=== PATIENT | female | born 2000 | race Hispanic/Latino ===

== ENCOUNTER 2021-06-13 12:58 | Emergency (ER) | payer SELFPAY ==
--- OUTSIDE RECORDS SUMMARY | 2021-06-13 13:01 | XMS REPORT | Continuity of Care Document ---
:2000 Author Organization [facility] t Address [address] [place] [address] [address]. [address] [place] [address] Care Team Providers Name Role Phone Yogesh ARMSTRONG Attending Clinician Problems This patient has no known problems. Allergies, Adverse Reactions, Alerts This patient has no known allergies or adverse reactions. Medications This patient has no known medications. Procedures This patient has no known procedures. Encounters Start End Encounter Admission Attending Care Care Encounter Source Date/Time Date/Time Type Type Clinicians Facility Department ID 2021-03-05 2021-03-05 Emergency Yogesh [facility] [id number] 19:20:00 21:17:00 Malissa Pittman [id number] [place] [id number] [place] [phone] [id number] Results This patient has no known results.
[2021-06-13 13:15] LABS: Urine Blood Trace-intact (Negative); Urine Glucose Negative (Negative); Urine Protein Negative (Negative)
[2021-06-13] MEDS ORDERED: AZITHROMYCIN 250 MG TAB ONE (14:09)
[2021-06-13] MEDS ORDERED: LIDOCAINE 1% MPF 5 ML VIAL ONE (14:09)
[2021-06-13] MEDS ORDERED: CEFTRIAXONE 250 MG/VIAL ONE (14:10)
--- NOTE | 2021-06-13 14:25 | EDPHYS ---
Physician Documentation [facility] Name: Eyad Delarosa Age: 20 yrs Sex: Female : 2000 Arrival Date: 06/13/2021 Time: 13:00 Bed 19 Private MD: ED Physician Aziza Walsh HPI: 06/13 13:20 This 20 yrs old Female presents to ER via Ambulatory with complaints of jmm Urinary Problem. 13:20 The patient presents with urinary symptoms. Onset: The symptoms/episode began/occurred jmm gradually. Modifying factors: The symptoms are alleviated by nothing, the symptoms are aggravated by nothing. 20-year-old female no chronic medical additions presents emerged part with complaints of dysuria beginning approximately 1 week ago. Patient does admit to unprotected sexual intercourse. States having mild discharge, denies pelvic pain. Denies vomiting or diarrhea.. 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 - Social history:: Smoking status: Reported history of juuling and/or vaping. ROS: 13:20 Constitutional: Negative for fever, chills, and weight loss, Cardiovascular: Negative jmm for chest pain, palpitations, and edema, Respiratory: Negative for shortness of breath, cough, wheezing, and pleuritic chest pain. 13:20 : Positive for urinary symptoms. 13:20 All other systems are negative. Exam: 13:20 Constitutional: This is a well developed, well nourished patient who is awake, alert, jmm and in no acute distress. Head/Face: atraumatic. Eyes: EOMI, no conjunctival erythema appreciated ENT: Moist Mucus Membranes Neck: Trachea midline, Supple Chest/axilla: Normal chest wall appearance and motion. Cardiovascular: Regular rate and rhythm. No edema appreciated Respiratory: Normal respirations, no respiratory distress appreciated Abdomen/GI: Non distended, soft Back: Normal ROM Skin: General appearance color normal MS/ Extremity: Moves all extremities, no obvious deformities appreciated, no edema noted to the lower extremities Neuro: Awake and alert, normal gait Psych: Behavior is normal, Mood is normal, Patient is cooperative and pleasant Vital Signs: 13:06 BP 117 / 85; Pulse 77; Resp 18 S; Temp 98.1; Pulse Ox 100% on R/A; Weight 81.65 kg (R); ca1 Height 5 ft. 6 in. (167.64 cm) (R); Pain 7/10; 13:06 Body Mass Index 29.05 (81.65 kg, 167.64 cm) ca1 MDM: 13:32 Patient medically screened. [facility] 14:23 Data reviewed: vital signs, nurses notes. Counseling: I had a detailed discussion with kim the patient and/or guardian regarding: the historical points, exam findings, and any diagnostic results supporting the discharge/admit diagnosis, lab results, the need for outpatient follow up, to return to the emergency department if symptoms worsen or persist or if there are any questions or concerns that arise at home. ED course: Patient is alert and nontoxic in appearance in the ED. I do not suspect PID. Due to symptomatology, patient most likely has a urinary tract infection. Urine sent for culture as well as GC. Patient will be treated for STI prophylactically. Patient is otherwise given strict return precautions. Patient understood and agrees with plan of care.. 06/13 13:15 Order name: Urine Culture [facility] 06/13 13:15 Order name: Urine Dipstick-Ancillary; Complete Time: 13:32 EDMS 06/13 13:17 Order name: Urine --Ancillary (enter results) [place] 06/13 13:17 Order name: Urine --Ancillary EDGA Administered Medications: 14:14 Drug: Rocephin (cefTRIAXone) 250 mg Route: IM; Site: right gluteus; ll1 14:37 Follow up: Response: No adverse reaction ll1 14:14 Drug: AZITHromycin 1 grams Route: PO; ll1 14:37 Follow up: Response: No adverse reaction ll1 Disposition Summary: 06/13/21 14:24 Discharge Ordered Location: Home kim Condition: Stable kim Diagnosis - Dysuria kim Followup: kim - With: Private Physician - When: 2 - 3 days - Reason: Recheck today's complaints, Continuance of care, Re-evaluation by your physician Discharge Instructions: - Discharge Summary Sheet kim - Dysuria kim Forms: - Medication Reconciliation Form kim - Thank You Letter kim - Antibiotic Education chrism - Prescription Opioid Use jmm - Work release form ll1 Prescriptions: - Cephalexin 500 mg Oral Capsule - take 1 capsule by ORAL route every 8 hours for 10 days; 30 capsule; Refills: 0, jmm Product Selection Permitted Signatures: Dispatcher [employer] Joe Patel PA PA jmm Acob, Cheryl, RN RN ca1 Katie Vuong RN RN ll1
--- NOTE | 2021-06-13 14:25 | ER ---
Nurse's Notes 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 Coronavirus screen: Client denies travel out of the [place] in the last 14 days. At this time, the client does not indicate any symptoms associated with coronavirus-19. Ebola Screen: Patient negative for fever greater than or equal to 101.5 degrees Fahrenheit, and additional compatible Ebola Virus Disease symptoms Patient denies exposure to infectious person. Patient denies travel to an Ebola-affected area in the 21 days before illness onset. No symptoms or risks identified at this time. Initial Sepsis Screen: Does the patient meet any 2 criteria? No. Patient's initial sepsis screen is negative. Does the patient have a suspected source of infection? No. Patient's initial sepsis screen is negative. Risk Assessment: Do you want to hurt yourself or someone else? Patient reports no desire to harm self or others. Onset of symptoms was June 13, 2021. 13:06 Method Of Arrival: Ambulatory ca1 13:06 Acuity: JANETTE 4 ca1 Triage Assessment: 13:12 General: Appears in no apparent distress. Behavior is calm, cooperative, appropriate ll1 for age. Pain: Complains of pain in with urination Quality of pain is described as aching. GI: Abdomen is flat, Bowel sounds present X 4 quads. Abd is soft and non tender X 4 quads. : Reports burning with urination. 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 - Social history:: Smoking status: Reported history of juuling and/or vaping. Screenin:14 Abuse screen: Denies threats or abuse. Nutritional screening: No deficits noted. ll1 Tuberculosis screening: No symptoms or risk factors identified. 14:37 Fall Risk None identified. Total Hennessy Fall Scale indicates No Risk (0-24 pts). ll1 Assessment: 14:10 Reassessment: No changes from previously documented assessment. Patient and/or family ll1 updated on plan of care and expected duration. Pain level reassessed. Patient is alert, oriented x 3, equal unlabored respirations, skin warm/dry/pink. 14:38 Reassessment: No changes from previously documented assessment. Patient and/or family ll1 updated on plan of care and expected duration. Pain level reassessed. Vital Signs: 13:06 BP 117 / 85; Pulse 77; Resp 18 S; Temp 98.1; Pulse Ox 100% on R/A; Weight 81.65 kg (R); ca1 Height 5 ft. 6 in. (167.64 cm) (R); Pain 7/10; 13:06 Body Mass Index 29.05 (81.65 kg, 167.64 cm) ca1 ED Course: 13:00 Patient arrived in ED. mr 13:07 Triage completed. ca1 13:07 Joe Zuniga PA is PHCP. [facility] 13:07 Aziza Walsh MD is Attending Physician. [facility] 13:11 Katie Vuong, DIDIER is Primary Nurse. ll1 13:11 Arm band placed on Patient placed in an exam room, on a stretcher. ll1 13:14 Patient has correct armband on for positive identification. Bed in low position. Call ll1 light in reach. Side rails up X 1. Pulse ox on. NIBP on. 14:37 No provider procedures requiring assistance completed. Patient did not have IV access ll1 during this emergency room visit. Administered Medications: 14:14 Drug: Rocephin (cefTRIAXone) 250 mg Route: IM; Site: right gluteus; ll1 14:37 Follow up: Response: No adverse reaction ll1 14:14 Drug: AZITHromycin 1 grams Route: PO; ll1 14:37 Follow up: Response: No adverse reaction ll1 Outcome: 14:24 Discharge ordered by . [facility] 14:37 Discharged to home ambulatory. ll1 14:37 Condition: stable 14:37 Discharge instructions given to patient, Instructed on discharge instructions, follow up and referral plans. medication usage, Demonstrated understanding of instructions, follow-up care, medications, Prescriptions given X 1. 14:38 Patient left the ED. ll1 Signatures: Joe Zuniga PA PA jmm Rivera Marylou mr Sravan, Dacia RN RN ca1 Katie Vuong RN RN ll1
[2021-06-13 14:45] VITALS: BP 117/85; TEMP 98.1; O2SAT 100
== END 2021-06-13 14:38 | disposition home or self-care (01) ==
LOC: ER 12:58
DX: R30.0 Dysuria (principal)
CPT/HCPCS: 81003; 81025; 87086; 87088; 96372; 99283; J0696

== ENCOUNTER 2021-11-26 17:09 | Emergency (ER) | payer SELFPAY ==
--- OUTSIDE RECORDS SUMMARY | 2021-11-26 17:13 | XMS REPORT | Continuity of Care Document ---
:2000 Author Organization [facility] t Address [address] [place] [address] Care Team Providers Name Role Phone NO Primary Care Physician Unavailable Mehul FIBRE CEMENT MOULDER Attending Clinician MEHUL Attending Clinician Unavailable Problems Condition Condition Condition Status Onset Resolution Last Treating Co mments Source Name Details Category Date Date Treatment Clinician Date No known No known Disease Unive rs active active ity of problems problems [facility] Allergies, Adverse Reactions, Alerts Allergy Allergy Status Severity Reaction(s) Onset Inactive Treating Comm ents Source Name Type Date Date Clinician NO KNOWN Drug Active Univers ALLERGIE Class ity of S [facility] Social History Social Habit Start Date Stop Date Quantity Comments Source Exposure to Not sure [facility] SARS-CoV-2 (event) [facility] Sex Assigned At [birth year] [facility] 00:00:00 00:00:00 [facility] Smoking Status Start Date Stop Date Source Unknown if ever smoked [facility] Medications Ordered Filled Start Stop Current Ordering Indication Dosage Frequency Signature Comments Components Source Medication Medication Date Date Medication? Clinician (SIG) Name Name azithromyci 2020- No 1000mg 1,000 mg, Univers n 03-06-13 Oral, ity of (ZITHROMAX) 02:00: 01[place] :[place] dose, Mon Medical 1,000 mg 03/05/21 at [facility] h 2100, JIMMY
Re ason for Anti-Infec tive: Empiric Therapy for Suspected Infection< br>Empiric Therapy Site: Pelvic
Duration of therapy: 72 hours cefTRIAXone No 500mg 500 mg, U nivers (ROCEPHIN) 03-06 Intramuscu it y of injection 02:00: 01:01 lar, ONCE, [place] 500 mg 00 :00 1 dose, [facility] 03/05/21 at 2100, JIMMY
Re ason for Anti-Infec tive: Empiric Therapy for Suspected Infection< br>Empiric Therapy Site: Pelvic
Duration of therapy: 72 hours Cephalexin Cephalexin Yes Amb[facility] S [address] [facility] Monohydrate Monohydrate 07-15 Basil [facility] - (Keflex) (Keflex) 00:00: Patie nt 500 Mg 500 Mg 00 s Capsule Capsule [facility] Fluconazole Fluconazole Yes Ambica S [address] [facility] 100 Mg 100 Mg 07-15 [facility] Tablet Tablet 00:00: Patient 00 s [facility] No known No Univers medications [facility] Vital Signs Vital Name Observation Time Observation Value Comments Source Body height 2021-03-06 00:19:00 167.6 cm [facility] Body weight 2021-03-06 00:19:00 83.054 kg [facility] BMI 2021-03-06 00:19:00 29.55 kg/m2 [facility] Systolic blood 2021-03-06 00:17:00 137 mm[Hg] Univer sity [facility] Diastolic blood 2021-03-06 00:17:00 78 [facility]Hg[facility] 2021-03-06 00:17:00 74 /min [facility] Body temperature 2021-03-06 00:17:00 37.06 Damari [facility] Respiratory rate 2021-03-06 00:17:00 14 /min [facility] Oxygen saturation in 2021-03-06 00:17:00 100 /min [facility] Arterial blood by [facility] Pulse oximetry Luckey Body height 2021-03-06 00:19:00 167.6 cm [facility] Body weight 2021-03-06 00:19:00 83.054 kg [facility] BMI 2021-03-06 00:19:00 29.55 kg/m2 Universi ty of [facility] Systolic blood 2021-03-06 00:17:00 137 mm[Hg] Univer sity of pressure [facility] Diastolic blood 2021-03-06 00:17:00 78 mm[Hg] Unive rsity of pressure [facility] Heart rate 2021-03-06 00:17:00 74 /min Universi ty of [facility] Body temperature 2021-03-06 00:17:[address] [facility] Respiratory rate 2021-03-06 00:17:00 14 /min [facility] Oxygen saturation in 2021-03-06 00:17:00 100 /min [facility] Arterial blood by [facility] Pulse oximetry Luckey Procedures Procedure Date / Time Performed Performing Clinician Sour e POCT TEST 2021-03-06 00:41:00 Malissa Carver [facility] URINALYSIS 2021-03-06 00:38:00 Malissa Carver [facility] NOTICE OF PRIVACY 2021-03-06 00:09:55 Doctor Unassigned, No Univ [facility] PRACTICES Name [facility] CONSENT/REFUSAL FOR 2021-03-06 00:09:37 Doctor Unassigned, No [facility] [place] [facility] AND Name [facility] TREATMENT Encounters Start End Encounter Admission Attending Care Care Encounter Source Date/Time Date/Time Type Type Clinicians Facility Department ID 2021-03-05 2021-03-[address] [facility], [facility] [id number] [facility] 19:20:00 21:17:00 Malissa Pittman [id number] i ty of [place] [id number] [facility] [id number] [facility] 084 Branch 2021-03-05 2021-03-05 Emergency Carver, [facility] [id number] 19:20:00 21:17:00 Malissa Pittman [id number] [place] [id number] [place] [id number] 2021-03-05 2021-03-05 Emergency X CARVER, [facility] ERT [id number] 19:20:00 19:20:[address] [facility] 2019-07-15 2019-07-15 Departed [facility] [id number] [facility] [address] 09:37:00 11:42:00 Emergency [facility] Results Test Description Test Time Test Comments Results Result Comments Source Urinalysis 2021-03-06 01:12:56 Test Item Value Reference Range Interpretation Comme nts APPEARANCE (test code = Hazy Clear A 6862228569) COLOR (test code = 0445343024) Yellow Yellow PH (test code = 3150058060) 4.8-8.0 SP GRAVITY (test code = 1.003-1.030 2444474939) GLU U QUAL (test code = Normal Normal 4969409523) BLOOD (test code = 1855181959) 3+ Negative A KETONES (test code = 8552926192) Negative Negative PROTEIN (test code = 2887-8) Negative Negative UROBILIN (test code = 2.0 mg/dL Normal A 1910375477) BILIRUBIN (test code = Negative Negative 0086284237) NITRITE (test code = 2447904852) Negative Negative LEUK BRICE (test code = Negative Negative 9032269075) RBC/HPF (test code = 7955970784) See_Comment H [Automated message] The system which ge nerated this result transmit brian reference range: 0 - 3 HP F. The reference range was not used to interpret th is result as normal/abnormal . WBC/HPF (test code = 8915702783) See_Comment [Automated message] The system which ge nerated this result transmit brian reference range: 0 - 5 HP F. The reference range was not used to interpret th is result as normal/abnormal . BACTERIA (test code = Negative Negative 2170834614) MUCOUS (test code = 9280966367) Moderate Negative LPF A SQ EPITH (test code = HPF 0861927495) Lab Interpretation (test code = Abnormal 82459-6) [id number]00 Test Item Value Reference Range Interpretation Comments POCT PREG (test code = 1605) negative On board controls acceptable with present C Line (test code = 3574) POCT PREG LOT # (test code = 3575) [id number] POCT PREG TEST DATE (test code = 3576) Lab Interpretation (test code = Normal 53602-3) [facility] [id number] 10:45:00 Test Item Value Reference Range Interpretation Comments Urine WBC (test code = 5821-4) 0[facility]5 [facility] [id number] 10:45:00 Test Item Value Reference Range Interpretation Comments Urine RBC (test code = 67941-2) 0-5 0-5 [facility] [id number] 10:45:00 Test Item Value Reference Range Interpretation Comments Urine Bacteria (test code = 98378-9) RARE NONE [facility] Epithelial [id number] 10:45:00 Test Item Value Reference Range Interpretation Comments Urine Epithelial Cells (test code = FEW NONE 95684-3) [facility] [id number] 10:28:00 Test Item Value Reference Range Interpretation Comments Urine Nitrite (test code = 61663-4) NEGATIVE NEGATIVE [facility] [id number] 10:28:00 Test Item Value Reference Range Interpretation Comments Urine Protein (test code = 33296-1) TRACE NEGATIVE H [facility] Glucose (UA)2019-07-15 10:28:00 Test Item Value Reference Range Interpretation Comments Urine Glucose (UA) (test code = NEGATIVE NEGATIVE 00484-3) [facility] [id number] 10:28:00 Test Item Value Reference Range Interpretation Comments Urine Ketones (test code = 43373-4) NEGATIVE NEGATIVE [facility] [id number] 10:28:00 Test Item Value Reference Range Interpretation Comments Urine Urobilinogen (test code = 0.2 0.2-1 66704-3) [facility] [id number] 10:28:00 Test Item Value Reference Range Interpretation Comments Urine Bilirubin (test code = 1977-8) NEGATIVE NEGATIVE [facility] [id number] 10:28:00 Test Item Value Reference Range Interpretation Comments Urine Blood (test code = 02618-7) NEGATIVE [facility]GATIVE [facility] [id number] 10:28:00 Test Item Value Reference Range Interpretation Comments Urine Color (test code = 5778-6) YELLOW YELLOW [facility] [id number] 10:28:00 Test Item Value Reference Range Interpretation Comments Urine Clarity (test code = 16352-9) CLEAR CLEAR [facility] Specific [id number] 10:28:00 Test Item Value Reference Range Interpretation Comments Urine Specific Camilla (test code = >=1.030 1.010-1.025 5811-5) [facility] [id number] 10:28:00 Test Item Value Reference Range Interpretation Comments Urine pH (test code = 52539-8) 6 5-7 [facility] Leukocyte [id number] 10:28:00 Test Item Value Reference Range Interpretation Comments Urine Leukocyte Esterase (test code = SMALL NEGATIVE 43120-7) [facility]
--- NOTE | 2021-11-26 17:49 | ER ---
Nurse's Notes [facility] Name: Eyad Delarosa Age: 21 yrs Sex: Female : 2000 Arrival Date: 11/26/2021 Time: 17:12 Bed Waiting Private MD: Diagnosis: ED Course: 11/26 17:12 Patient arrived in ED. am2 17:48 Rae Tineo RN is Primary Nurse. iw Administered Medications: No medications were administered Outcome: 17:49 Patient left the ED. iw Signatures: Rae Tineo RN RN iw Annabel Parkinson am2
== END 2021-11-26 17:49 | disposition left against medical advice (07) ==
LOC: ER 17:09
DX: Z02.9 Encounter for administrative examinations, unspecified (principal)

== ENCOUNTER 2021-12-07 07:23 | Emergency (ER) | payer SELFPAY ==
--- OUTSIDE RECORDS SUMMARY | 2021-12-07 07:26 | XMS REPORT | Continuity of Care Document ---
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 Attending Clinician MEHUL Attending Clinician Unavailable Problems Condition Condition Condition Status Onset Resolution Last Treating Co mments Source Name Details Category Date Date Treatment Clinician Date No known No known Disease Unive rs active active ity of problems problems [facility] Allergies, Adverse Reactions, Alerts Allergy Allergy Status Severity Reaction(s) Onset Inactive Treating Comm ents Source Name Type Date Date Clinician NO KNOWN Drug Active Univers ALLERGIE Class ity of S [facility] Social History Social Habit Start Date Stop Date Quantity Comments Source Exposure to Not sure [facility] SARS-CoV-2 (event) [facility] Sex Assigned At [birth year] [facility] 00:00:00 00:00:00 [facility] Smoking Status Start Date Stop Date Source Unknown if ever smoked [facility] Medications Ordered Filled Start Stop Current Ordering Indication Dosage Frequency Signature Comments Components Source Medication Medication Date Date Medication? Clinician (SIG) Name Name azithromolayinkai 2020- No 1000mg 1,000 mg, Univers n 03-06-13 Oral, ity of (ZITHROMAX) 02:00[place] dose, Mon [facility] 1,000 mg 03/05/21 at [facility] h 2100, JIMMY
Re ason for Anti-Infec tive: Empiric Therapy for Suspected Infection< br>Empiric Therapy Site: Pelvic
Duration of therapy: 72 hours cefTRIAXone No 500mg 500 mg, U nivers (ROCEPHIN) 03-06 Intramuscu it y of injection 02:00: 01:01 lar, ONCE[place] 500 mg 00 :00 1 dose, [facility] 03/05/21 at 2100, JIMMY
Re ason for Anti-Infec tive: Empiric Therapy for Suspected Infection< br>Empiric Therapy Site: Pelvic
Duration of therapy: 72 hours Cephalexin Cephalexin Yes Amb[facility] S [address] [facility] Monohydrate Monohydrate 07-15 [facility] (Keflex) (Keflex) 00:00: Patie nt 500 Mg 500 Mg 00 s Capsule Capsule [facility] Fluconazole Fluconazole Yes [facility] S [address] [facility] 100 Mg 100 Mg 07-15 [facility] Tablet Tablet 00:00: Patient 00 s [facility] No known No Univers medications [facility] Vital Signs Vital Name Observation Time Observation Value Comments Source Body height 2021-03-06 00:19:[address] [facility] Body weight 2021-03-06 00:19:[address] [facility] BMI 2021-03-06 00:19:00 29.55 kg/m2 [facility] Systolic blood 2021-03-06 00:17:00 137 mm[Hg] Univer sity [facility] Diastolic blood 2021-03-06 00:17:00 78 mm[facility]Hg] [facility] Heart rate 2021-03-06 00:17:00 74 /min [facility] Body temperature 2021-03-06 00:17:00 37.06 Damari [facility] Respiratory rate 2021-03-06 00:17:00 14 /min [facility] Oxygen saturation in 2021-03-06 00:17:00 100 /min [facility] Arterial blood by [facility] Pulse oximetry [place] Body height 2021-03-06 00:19:[address] [facility] Body weight 2021-03-06 00:19:[address] [facility] BMI 2021-03-06 00:19:00 29.55 kg/m2 [facility]i ty [facility] Systolic blood 2021-03-06 00:17:00 137 mm[Hg] Univer sity of pressure [facility] Diastolic blood 2021-03-06 00:17:00 78 mm[Hg] Unive rsity of pressure [facility] Heart rate 2021-03-06 00:17:00 74 /min Universi ty [facility] Body temperature 2021-03-06 00:17:00 37.06 Damari [facility] ersity [facility] Respiratory rate 2021-03-06 00:17:00 14 /min [facility] Oxygen saturation in 2021-03-06 00:17:00 100 /min [facility] blood by [facility] Pulse oximetry [place] Procedures Procedure Date / Time Performed Performing Clinician Sour e POCT TEST 2021-03-06 00:41:00 Malissa [facility] URINALYSIS 2021-03-06 00:38:00 Malissa Carver [facility] NOTICE OF PRIVACY 2021-03-06 00:09:55 Doctor Unassigned, No Univ [facility] PRACTICES Name [facility] CONSENT/REFUSAL FOR 2021-03-06 00:09:37 Doctor Unassigned, No [facility] AND Name [facility] TREATMENT Encounters Start End Encounter Admission Attending Care Care Encounter Source Date/Time Date/Time Type Type Clinicians Facility Department ID 2021-03-05 2021-03-05 Emergency [facility], [facility] [id number] [facility] 19:20:00 21:17:00 Malissa Pittman [id number] i ty of [place] [id number] [facility] [id number] Medi ralph 084 Branch 2021-03-05 2021-03-05 Emergency Carver, [facility] [id number] 19:20:00 21:17:00 Malissa Pittman [id number] [place] [id number] [place] [id number] 2021-03-05 2021-03-05 Emergency X CARVER, [facility] ERT [id number] Univers 19:20:00 19:20:00 MALISSA busch [facility] 2019-07-15 2019-07-15 Departed [facility] [id number] 09:37:00 11:42:00 Emergency [facility] Results Test Description Test Time Test Comments Results Result Comments Source Urinalysis 2021-03-06 01:12:56 Test Item Value Reference Range Interpretation Comme nts APPEARANCE (test code = Hazy Clear A 1818056608) COLOR (test code = 2695278639) Yellow Yellow PH (test code = 9887068005) 4.8-8.0 SP GRAVITY (test code = 1.003-1.030 3130922399) GLU U QUAL (test code = Normal Normal 6047146226) BLOOD (test code = 8485567089) 3+ Negative A KETONES (test code = 6609158866) Negative Negative PROTEIN (test code = 2887-8) Negative Negative UROBILIN (test code = 2.0 mg/dL Normal A 9739856895) BILIRUBIN (test code = Negative Negative 0966423400) NITRITE (test code = 1253282501) Negative Negative LEUK BRICE (test code = Negative Negative 2690200784) RBC/HPF (test code = 3766952465) See_Comment H [Automated message] The system which ge nerated this result transmit brian reference range: 0 - 3 HP F. The reference range was not used to interpret th is result as normal/abnormal . WBC/HPF (test code = 7888859282) See_Comment [Automated message] The system which ge nerated this result transmit brian reference range: 0 - 5 HP F. The reference range was not used to interpret th is result as normal/abnormal . BACTERIA (test code = Negative Negative 6216457091) MUCOUS (test code = 4399498833) Moderate Negative LPF A SQ EPITH (test code = HPF 8158541962) Lab Interpretation (test code = Abnormal 13586-1) [facility] [id number] 00:41:00 Test Item Value Reference Range Interpretation Comments POCT PREG (test code = 1605) negative On board controls acceptable with present C Line (test code = 3574) POCT PREG LOT # (test code = 3575) [id number] POCT PREG TEST DATE (test code = 3576) Lab Interpretation (test code = Normal 01200-8) [facility] [id number] 10:45:00 Test Item Value Reference Range Interpretation Comments Urine WBC (test code = 5821-4) 0-5 0-5 [facility] [id number] 10:45:00 Test Item Value Reference Range Interpretation Comments Urine RBC (test code = 56602-5) 0-5 0-5 [facility] [id number] 10:45:00 Test Item Value Reference Range Interpretation Comments Urine Bacteria (test code = 59256-6) RARE NONE [facility] Epithelial [id number] 10:45:00 Test Item Value Reference Range Interpretation Comments Urine Epithelial Cells (test code = FEW NONE 83693-8) [facility] [id number] 10:28:00 Test Item Value Reference Range Interpretation Comments Urine pH (test code = 71013-6) 6 5-7 [facility] Leukocyte [id number] 10:28:00 Test Item Value Reference Range Interpretation Comments Urine Leukocyte Esterase (test code = SMALL NEGATIVE 58325-6) [facility] [id number] 10:28:00 Test Item Value Reference Range Interpretation Comments Urine Nitrite (test code = 71136-8) NEGATIVE NEGATIVE [facility] [id number] 10:28:00 Test Item Value Reference Range Interpretation Comments Urine Protein (test code = 93991-8) TRACE NEGATIVE H [facility] Glucose (UA)2019-07-15 10:28:00 Test Item Value Reference Range Interpretation Comments Urine Glucose (UA) (test code = NEGATIVE NEGATIVE 75968-2) [facility] [id number] 10:28:00 Test Item Value Reference Range Interpretation Comments Urine Ketones (test code = 54606-3) NEGATIVE NEGATIVE [facility] [id number] 10:28:00 Test Item Value Reference Range Interpretation Comments Urine Urobilinogen (test code = 0.2 0.2-1 40678-1) [facility] [id number] 10:28:00 Test Item Value Reference Range Interpretation Comments Urine Bilirubin (test code = 1977-8) NEGATIVE NEGATIVE [facility] [id number] 10:28:00 Test Item Value Reference Range Interpretation Comments Urine Blood (test code = 82660-5) NEGATIVE NEGATIVE [facility] [id number] 10:28:00 Test Item Value Reference Range Interpretation Comments Urine Color (test code = 5778-6) YELLOW YELLOW [facility] [id number] 10:28:00 Test Item Value Reference Range Interpretation Comments Urine Clarity (test code = 28937-7) CLEAR CLEAR [facility] Specific [id number] 10:28:00 Test Item Value Reference Range Interpretation Comments Urine Specific [place] (test code = >=1.030 1.010-1.025 5811-5) [facility]
--- NOTE | 2021-12-07 08:44 | EDPHYS ---
Physician Documentation [facility] Name: Eyad Delarosa Age: 21 yrs Sex: Female : 2000 Arrival Date: 12/07/2021 Time: 07:25 Bed 12 Private MD: ED Physician Colten Haque HPI: 12/07 07:47 This 21 yrs old Female presents to ER via Unassigned with complaints of jmm Urinary Frequency. 07:47 The patient presents with urinary symptoms. Onset: The symptoms/episode began/occurred jmm gradually, 5 day(s) ago. Modifying factors: The symptoms are alleviated by nothing, the symptoms are aggravated by nothing. Associated signs and symptoms: Pertinent positives: dysuria, urinary frequency, Pertinent negatives: fever, hematuria, vaginal discharge, vomiting. This is a 21 year old female with no known medical conditions that presents to the ED with complaints of painful burning urination with increased frequency. Denies abdominal pain, vomiting, back pain, fever or vaginal discharge. . 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 - Social history:: Smoking status: Patient denies any tobacco usage or history of. ROS: 07:47 Constitutional: Negative for fever, chills, and weight loss, Cardiovascular: Negative jmm for chest pain, palpitations, and edema, Respiratory: Negative for shortness of breath, cough, wheezing, and pleuritic chest pain, Abdomen/GI: Negative for abdominal pain, nausea, vomiting, diarrhea, and constipation. 07:47 : Positive for urinary symptoms. 07:47 All other systems are negative. Exam: 07:47 Constitutional: This is a well developed, well nourished patient who is awake, alert, jmm and in no acute distress. Head/Face: atraumatic. Eyes: EOMI, no conjunctival erythema appreciated ENT: Moist Mucus Membranes Neck: Trachea midline, Supple Chest/axilla: Normal chest wall appearance and motion. Cardiovascular: Regular rate and rhythm. No edema appreciated Respiratory: Normal respirations, no respiratory distress appreciated 07:47 Skin: General appearance color normal MS/ Extremity: Moves all extremities, no obvious deformities appreciated, no edema noted to the lower extremities Neuro: Awake and alert, normal gait Psych: Behavior is normal, Mood is normal, Patient is cooperative and pleasant 07:47 Abdomen/GI: Inspection: abdomen appears normal, Bowel sounds: normal, Palpation: soft, nontender, in all quadrants. 07:47 Back: CVA tenderness, is absent. Vital Signs: 08:43 BP 119 / 79; Pulse 68; Resp 14; Temp 97.9; Pulse Ox 98% ; Weight 81.65 kg; Height 5 ft. vg1 5 in. (165.10 cm); Pain 7/10; 08:43 Body Mass Index 29.95 (81.65 kg, 165.10 cm) vg1 MDM: 08:37 Patient medically screened. [facility] 08:42 Data reviewed: vital signs, nurses notes. Counseling: I had a detailed discussion with kim the patient and/or guardian regarding: the historical points, exam findings, and any diagnostic results supporting the discharge/admit diagnosis, the need for outpatient follow up, to return to the emergency department if symptoms worsen or persist or if there are any questions or concerns that arise at home. ED course: PE does not reveal signs of an acute intrabdominal process. Patient is able to tolerate PO, no CVA tenderness. Patient will be prescribed oral abx and given strict return precautions. Patient understood and agrees with the plan of care. . 12/07 07:47 Order name: Urine Culture [facility] 12/07 08:51 Order name: Urine Dipstick-Ancillary [facility] 12/07 07:47 Order name: Urine Dipstick-Ancillary (obtain specimen); Complete Time: 08:[address] [facility] 12/07 07:47 Order name: Urine Test (obtain specimen); Complete Time: 08:[address] [facility] 12/07 08:52 Order name: Urine --Ancillary (enter results) eb 12/07 08:53 Order name: Urine --Ancillary [facility] Administered Medications: No medications were administered Disposition: 12/08 07:47 Co-signature as Attending Physician, Colten Haque MD I agree with the assessment and lorena plan of care. Disposition Summary: 12/07/21 08:43 Discharge Ordered Location: Home jmm Condition: Stable jmm Diagnosis - Dysuria jmm Followup: jmm - With: Private Physician - When: 2 - 3 days - Reason: Recheck today's complaints, Continuance of care, Re-evaluation by your physician Discharge Instructions: - Discharge Summary Sheet jmm - Dysuria jm Forms: - Medication Reconciliation Form jm - Thank You Letter jmm - Antibiotic Education jmm - Prescription Opioid Use jm Prescriptions: - Cephalexin 500 mg Oral Capsule - take 1 capsule by ORAL route every 8 hours for 10 days; 30 capsule; Refills: 0, jmm Product Selection Permitted Signatures: Dispatcher [employer] EDColten Connor MD MD cha Mickail, Joel, PA PA jmm Garcia, Victoria, RN RN vg1 Corrections: (The following items were deleted from the chart) 12/07 08:45 08:44 Home Meds: None; vg1 vg1
[2021-12-07 08:52] LABS: Urine Blood Trace-intact (Negative); Urine Glucose Negative (Negative); Urine Protein Trace (Negative); Urine Specific Gravity >=1.030 (1.005-1.030); Urine pH 5.5 (5.0-7.0)
--- NOTE | 2021-12-07 09:15 | ER ---
Nurse's Notes [facility] Name: Eyad Delarosa Age: 21 yrs Sex: Female : 2000 Arrival Date: 12/07/2021 Time: 07:25 Bed 12 Private MD: Diagnosis: Dysuria Presentation: 12/07 08:43 Chief complaint: Chief complaint: Patient states: urine frequency with burning and vg1 vaginal irritation x 1 week. Denies fever or NVD. Coronavirus screen: Vaccine status: Patient reports receiving the 1st dose of the Covid vaccine. Client denies travel out of the [place] in the last 14 days. Ebola Screen: Patient negative for fever greater than or equal to 101.5 degrees Fahrenheit, and additional compatible Ebola Virus Disease symptoms. Initial Sepsis Screen: Does the patient meet any 2 criteria? No. Patient's initial sepsis screen is negative. Does the patient have a suspected source of infection? No. Patient's initial sepsis screen is negative. Risk Assessment: Do you want to hurt yourself or someone else?. Risk Assessment: Do you want to hurt yourself or someone else? Patient reports no desire to harm self or others. Onset of symptoms was December 02, 2021. 08:43 Method Of Arrival: Ambulatory vg1 08:43 Acuity: JANETTE 4 vg1 Triage Assessment: 08:44 General: Appears in no apparent distress. uncomfortable, Behavior is calm, cooperative. vg1 Pain: Complains of pain in pelvis Pain currently is 7 out of 10 on a pain scale. Pain began x 1 week. EENT: No signs and/or symptoms were reported regarding the EENT system. Neuro: Level of Consciousness is awake, alert, obeys commands, Oriented to person, place, time, situation. Cardiovascular: Patient's skin is warm and dry. Respiratory: Airway is patent Respiratory effort is even, unlabored. GI: Patient currently denies diarrhea, nausea, vomiting. : Reports burning with urination, urgency, urinary frequency. Derm: Skin is intact, is healthy with good turgor. Musculoskeletal: Circulation, motion, and sensation intact. 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 - Social history:: Smoking status: Patient denies any tobacco usage or history of. Screenin:46 Abuse screen: Denies threats or abuse. Nutritional screening: No deficits noted. vg1 Tuberculosis screening: No symptoms or risk factors identified. Fall Risk None identified. Assessment: 08:45 Reassessment: SEE TRIAGE. vg1 Vital Signs: 08:43 BP 119 / 79; Pulse 68; Resp 14; Temp 97.9; Pulse Ox 98% ; Weight 81.65 kg; Height 5 ft. vg1 5 in. (165.10 cm); Pain 7/10; 08:43 Body Mass Index 29.95 (81.65 kg, 165.10 cm) vg1 ED Course: 07:25 Patient arrived in ED. ds1 07:26 Joe Zuniga PA is PHCP. [facility] 07:26 Colten Haque MD is Attending Physician. [facility] 08:43 Camelia Ritchie, RN is Primary Nurse. vg1 08:44 Triage completed. vg1 08:46 Arm band placed on. vg1 08:46 Patient has correct armband on for positive identification. Bed in low position. Call 1 light in reach. 08:46 No provider procedures requiring assistance completed. Patient did not have IV access vg1 during this emergency room visit. Administered Medications: No medications were administered Outcome: 08:43 Discharge ordered by . [facility] 09:14 Discharged to home ambulatory. vg1 09:14 Condition: good 09:14 Discharge instructions given to patient, Instructed on discharge instructions, follow up and referral plans. medication usage, Demonstrated understanding of instructions, follow-up care, medications, Prescriptions given X 1. 09:14 Patient left the ED. vg1 Signatures: Joe Zuniga PA PA jmm Sanford, Demi ds1 Camelia Ritchie, RN RN vg1 Corrections: (The following items were deleted from the chart) 08:45 08:44 Home Meds: None; vg1 vg1
[2021-12-07 09:20] VITALS: BP 119/79; TEMP 97.9; O2SAT 98
== END 2021-12-07 09:14 | disposition home or self-care (01) ==
LOC: ER 07:23
DX: R30.0 Dysuria (principal)
CPT/HCPCS: 81003; 81025; 87086; 87088; 99282